=== PATIENT | female | born 1950 | race Two or more races ===

== ENCOUNTER 2018-10-23 03:42 | Emergency (ER) | payer MEDICARE, MEDICAID ==
[~2018-10-23 03:42] MED LIST: ASPI-515; CAPT25TA3 PO; GLIM4TAB PO; LISI2.5T; LOVA-39; METF500T27; METF850T10 PO; METO25TA35; PIOG30TA67 PO
--- NOTE | 2018-10-23 04:21 | NUR ---
pt to room from triage with c/o chest pressure and headache with htn x tonight, piv placed labs drawn, placed on all monitors, at bedside, awaiting erp,
[2018-10-23] MEDS ORDERED: MORPHINE SULFATE 4 MG/ML, 1ML ONE (04:44)
[2018-10-23] MEDS ORDERED: ONDANSETRON 2MG/ML, 2ML ONE (04:44)
[2018-10-23] MEDS ORDERED: SODIUM CHLORIDE FLUSH 10ML SYR IVF ONE (05:00)
[2018-10-23] MEDS ORDERED: MORPHINE SULFATE 4 MG/ML, 1ML IVPush PRN (05:00)
[2018-10-23] MEDS ORDERED: ONDANSETRON 2MG/ML, 2ML IVPush ONE (05:00)
[2018-10-23 05:35] LABS: BASOPHILS # (AUTO) 0.04 x10^3/uL (0-0.1); BASOPHILS % (AUTO) 0 % (0-1); EOSINOPHILS % (AUTO) 1 % (1-7); LYMPHOCYTES # (AUTO) 2.06 x10^3/uL (1-3.4); LYMPHOCYTES % (AUTO) 20 % (22-44); MD NO; MEAN CORPUSCULAR HEMOGLOBIN 30.9 pg (27.0-34.8); MEAN CORPUSCULAR HGB CONC 34.3 g/dL (32.4-35.8); MEAN CORPUSCULAR VOLUME 89.9 fL (80-100); MEAN PLATELET VOLUME 8.5 fL (7.4-10.4); MONOCYTES # (AUTO) 0.57 x10^3/uL (0.2-0.8); MONOCYTES % (AUTO) 6 % (2-9); NEUTROPHILS # (AUTO) 7.31 x10^3/uL (1.8-6.8); NEUTROPHILS % (AUTO) 73 % (42-75); PLATELET COUNT 273 x10^3/uL (130-400); RED BLOOD COUNT 4.19 x10^6/uL (3.82-5.3); RED CELL DISTRIBUTION WIDTH 13.1 % (9.6-15.2)
[2018-10-23 05:39] LABS: ALBUMIN 4.5 g/dL (3.4-5.0); CALCIUM 9.6 mg/dL (8.5-10.1); CHLORIDE 103 mmol/L (98-107)
[2018-10-23 05:50] LABS: ALANINE AMINOTRANSFERASE 32 U/L (12-78); ALKALINE PHOSPHATASE 85 U/L (45-117); ANION GAP 10 mmol/L (5-15); BILIRUBIN,TOTAL 0.4 mg/dL (0.2-1.0); CREATININE 1.11 mg/dL (0.55-1.02); TOTAL PROTEIN 9.2 g/dL (6.4-8.2)
--- NOTE | 2018-10-23 05:59 | NUR ---
up to br to void pt states feels better
[2018-10-23 06:18] LABS: MICROSCOPIC NOT IND
[2018-10-23 06:20] LABS: CULTURE INDICATED? NO
--- NOTE | 2018-10-23 06:34 | NUR ---
ua sent to lab
--- NOTE | 2018-10-23 07:03 | NUR ---
Recieved report from ALONZO Ken. All questions answered. FIRST CONTACT WITH PT. TONE. Pt resting on gurney connected to all monitors. Pt's spouse at bedside. All safety measures in place. No needs requested at this time.
[2018-10-23 07:04] VITALS: BP 121/59
--- NOTE | 2018-10-23 07:29 | NUR ---
Patient given discharge instructions and they have confirmed that they understand the instructions. Patient ambulatory with steady gait. Pt and spouse left with discharge paperwork and all personal belongings.
== END 2018-10-23 07:33 | disposition home or self-care (01) ==
LOC: ED 07:31
DX: R10.813 Right lower quadrant abdominal tenderness (principal); E78.00 Pure hypercholesterolemia, unspecified; I10 Essential (primary) hypertension; E11.9 Type 2 diabetes mellitus without complications; F03.90 Unspecified dementia, unspecified severity, without behavioral disturbance, psychotic disturbance, mood disturbance, and anxiety
CPT/HCPCS: 36415; 80053; 81003; 85025; 93005; 96374; 96375; 99284; J2405

== ENCOUNTER 2019-12-09 01:06 | Emergency (ER) | payer MEDICARE, MEDICAID ==
[~2019-12-09] VITALS: Ht 149.9 cm; Wt 63.3 kg
[2019-12-09] MEDS ORDERED: SODIUM CHLORIDE FLUSH 10ML SYR IVF ONE (01:30)
[2019-12-09] MEDS ORDERED: NITROGLYCERIN OINT 2%, 1GM TP ONE ×2 (01:30)
[2019-12-09] MEDS ORDERED: LABETALOL 5MG/ML, 20ML IVPush ONE ×2 (01:30→02:30)
[2019-12-09] MEDS ORDERED: LABETALOL 5MG/ML, 20ML ONE (01:31)
--- NOTE | 2019-12-09 01:58 | NUR ---
PT TO ED FOR HTN. AWAITING BISCUIT MACHINE OPERATOR FOR MD ASSESSMENT. PIV ESTABLISHED, LABS DRAWN AND SENT, AND PT MEDICATED PER SEP.
[2019-12-09 01:59] LABS: BASOPHILS # (AUTO) 0.03 x10^3/uL (0-0.1); BASOPHILS % (AUTO) 0 % (0-1); EOSINOPHILS # (AUTO) 0.32 x10^3/uL (0-0.4); EOSINOPHILS % (AUTO) 4 % (1-7); LYMPHOCYTES # (AUTO) 2.48 x10^3/uL (1-3.4); LYMPHOCYTES % (AUTO) 29 % (22-44); MD NO; MEAN CORPUSCULAR HEMOGLOBIN 30.2 pg (27.0-34.8); MEAN CORPUSCULAR HGB CONC 33.2 g/dL (32.4-35.8); MEAN PLATELET VOLUME 7.6 fL (7.4-10.4); MONOCYTES # (AUTO) 0.58 x10^3/uL (0.2-0.8); MONOCYTES % (AUTO) 7 % (2-9); NEUTROPHILS # (AUTO) 5.24 x10^3/uL (1.8-6.8); NEUTROPHILS % (AUTO) 61 % (42-75); PLATELET COUNT 304 x10^3/uL (130-400); RED BLOOD COUNT 4.05 x10^6/uL (3.82-5.3)
[2019-12-09 02:07] LABS: ALANINE AMINOTRANSFERASE 32 U/L (12-78); ANION GAP 8 mmol/L (5-15); CALCIUM 9.4 mg/dL (8.5-10.1); CHLORIDE 106 mmol/L (98-107)
[2019-12-09 02:11] LABS: ALKALINE PHOSPHATASE 103 U/L (45-117); BILIRUBIN,TOTAL 0.3 mg/dL (0.2-1.0); TOTAL PROTEIN 8.9 g/dL (6.4-8.2); TROPONIN I < 0.015 ng/mL (0.000-0.045)
--- NOTE | 2019-12-09 02:15 | NUR ---
WITH JUNIOR ACCOUNT MANAGER: DENIES S/S, MILD FERRER, HX HTN NAD DM, SX HX SHOULDER AND IVAN
[2019-12-09 02:50] VITALS: BP 170/86
== END 2019-12-09 04:06 | disposition home or self-care (01) ==
LOC: ED 02:11
DX: I16.9 Hypertensive crisis, unspecified (principal); R00.0 Tachycardia, unspecified; R07.9 Chest pain, unspecified; R51 Headache; E11.9 Type 2 diabetes mellitus without complications; E78.00 Pure hypercholesterolemia, unspecified; Z90.49 Acquired absence of other specified parts of digestive tract; Z90.710 Acquired absence of both cervix and uterus
CPT/HCPCS: 36415; 71045; 80053; 83880; 84484; 85025; 93005; 96374; 96376; 99285